=== PATIENT | female | born 1945 | race Caucasian/White ===

== ENCOUNTER 2024-10-30 20:13 | Observation (INO) | payer MEDICARE, SELFPAY ==
[2024-10-30 12:24] VITALS: BP 192/76
[2024-10-30] MEDS: NSS 1000 IV ×2 (15:28→21:36)
[2024-10-30] MEDS: ANTIVERT 25 MG PO (15:28)
--- NOTE | 2024-10-30 15:36 | ED.GENMED ---
History of Present Illness
General
Chief Complaint: Dizziness
Source: patient and family
Time Seen by Provider: 10/30/24 14:53
History of Present Illness
History of Present Illness:
Very pleasant 79-year-old female who says she awoke yesterday morning and immediately felt dizzy described as feeling like her eyes were funny and making a motion with her hand [id number]. She lay back down and waited for 5 minutes and felt
better. She then got up and walked to the bathroom and felt that her symptoms were improved but describes feeling 'woozy' for the rest of the day. When she awoke this morning she again felt like the room was spinning. She laid down for about 15
minutes, got up, and noted symptoms were still present although better. She was worried about falling when she walked down the stairs so she lowered herself down. She then reach out to her daughter and went to an urgent care where she was referred
to the ER. She does note that she has had 'pressure' in the right ear. She denies numbness, tingling, focal weakness, double vision, blurry vision, vomiting. She does have nausea with the dizziness. She denies neck pain, trauma, fever, chills,
rhinorrhea, sore throat, tinnitus. She does note discomfort on the right side of her head beginning today, lasting for last few hours. This is not worst of life or sudden onset.
Past History
Past History
ED Past Medical History: Other (Sleep apnea, PVCs)
ED Past Surgical History: Gynecological
Social History
Tobacco: Non-smoker
Alcohol: Occasional
Drug: None
Personal:
Living: alone
Employment: Retired
Family History
Family History: Other (Noncontributory)
Phy Exam
Physical Exam
Physical Exam:
GENERAL: Alert , in no apparent distress
EYE: pupils equal and reactive, no photophobia, EOMI, no nystagmus
NECK: Supple, no significant adenopathy.
ENT: o/p clr, mmm. Right TM obscured by cerumen, left TM unremarkable
CARDIAC: Regular rate and rhythm .
LUNGS: Clear breath sounds bilaterally, no acute respiratory distress, no wheezes/rales/rhonchi
ABDOMEN: Soft, without focal tenderness, no r/g, no cvat
NEUROLOGICAL: Alert and oriented, no focal neuro deficits, patient feels unsteady with walking, [id number] normal, motor 5 out of 5, sensory intact, cranial nerves II through XII intact
SKIN: Warm and dry, skin intact.
MUSCULOSKELETAL: No edema, well perfused.
PSYCH: Normal and appropriate interaction.
Course
Orders/Labs/Results
Orders:
Orders
10/30/24 Breakfast
Regular
At Your Request: Full Participation
Does patient need a safe tray?: No
10/30/24 12:28
EKG [Electrocardiogram (*1)] Urgent
Reason for Study: Vertigo / Dizzy
EKG- Treatment ONCE
10/30/24 15:15
CT Head W/o Iv Contrast Urgent
Comment:
Reason For Exam: dizzy
Cardiac Monitoring- Treatment ONCE
0.9% Sodium Chloride 1000 ml [Nss] 1,000 ml IV BOLUS
Meclizine [Antivert] 25 mg PO NOW STA
10/30/24 15:27
Complete Blood Count/No Diff Urgent
Comprehensive Metabolic Panel Urgent
Erythrocyte Sed Rate Urgent
Glycohemoglobin (HgbA1c) Urgent
Troponin I Urgent
10/30/24 19:49
Admit/Transfer Patient As Directed
Co-Sign Provider:
Level of Care: Observation services
Assign to:: Telemetry
Physician / Group: Roc
Diagnosis: Vertigo
Reason for Telemetry: Arrhythmia
Date to Stop Telemetry: 11/02/24
Time to Stop Telemetry: 11:00
PRN Pain Medication Management As Directed
May give lesser potent ordered pain med per pt: Yes
preference::
Protocol:: Medication orders for pain may be administered in a
manner that supports deferring to patient preference
when the pt is:
- Requesting an ordered lesser potent pain medication.
Least to most potent pain medications are defined
as: acetaminophen < NSAID < tramadol < opioids
(morphine, oxycodone, hydromorphone).
- Requesting a lesser dose of the same medication IF
ORDERED.
- Requesting a less intrusive route of administration
if both routes are prescribed by the provider (PO <
IV).
10/30/24 19:50
Code Status As Directed
Resuscitation Status: Full Code
10/30/24 21:06
0.9% Sodium Chloride 1000 ml [Nss] 1,000 ml IV 125 mls/hr
Acetaminophen [Tylenol] 650 mg PO Q4HPRN PRN
Carbamide Peroxide [Debrox Ear Drops] See Dose Instructions OTIC BID
Diazepam [Valium] 5 mg PO TIDPRN PRN
Meclizine [Antivert] 25 mg PO Q8HPRN PRN
Ondansetron Injectable [Zofran] 4 mg IV Q6HPRN PRN
10/30/24 21:06
Activity As Directed
Activity Level: Ambulate
With Assistance
I/O [Intake/ Output] As Directed
Frequency: Per unit guidelines
Neurological Checks As Directed
Frequency: q4h
Orthostatic Vital Signs As Directed
Orthostatic VS Frequency: BID
Pneumatic Compression Sleeves As Directed
Type: Knee high
Vital Signs As Directed
Frequency: Per unit guidelines
Weight As Directed
Frequency: Daily
Cpap [RESP] Routine
Patient to use own unit?: No
Set Pressure (cm H2O): 6
Instructions: HS and PRN. Titrate for comfort (patient does not know home settings).
Oxygen Therapy [O2 Therapy] [RESP] Routine
Titrate/Wean O2 to maintain O2 sat greater than (%): 94
Ot Eval And Treat Routine
PT Consult [Pt Eval And Treat] Routine
Activity Level: Ambulate
With Assistance
DX Deep Vein Thrombosis Video Routine
10/31/24 05:50
Basic Metabolic Panel IN AM
Cardiovascular Evaluation IN AM
Complete Blood Count/No Diff IN AM
10/31/24 18:00
Metoprolol Xl [Toprol Xl] 25 mg PO QPM
11/02/24 11:00
DC Protocol for Telemetry ONCE
Abnormal Lab Results
10/30/24
15:27
RBC 4.13 L 10^6/uL
(4.20-5.40)
MCV 101.0 H fL
(81.0-99.0)
MCH 32.9 H pg
(27.0-31.0)
MCHC 32.6 L g/dL
(33.0-37.0)
Hemoglobin A1c 5.7 H %
(4.0-5.6)
Total Bilirubin 1.5 H mg/dl
(0.2-1.3)
10/30/24 15:27
10/30/24 15:27
Vital Signs
Initial and Last Documented VS:
Initial Vital Signs
Temp Pulse Resp BP Pulse Ox
97.7 F 58 16 192/76 99
10/30/24 12:24 10/30/24 12:24 10/30/24 12:24 10/30/24 12:24 10/30/24 12:24
Last Documented Vital Signs
Temp Pulse Resp BP Pulse Ox
98.3 F 76 20 158/69 97
10/31/24 15:00 10/31/24 16:07 10/31/24 15:00 10/31/24 16:07 10/31/24 15:00
*Critical Care Note
Total Time (30-74mins, 75-104mins- exclusive of procedures): Not Applicable
Update Note
Update Note:
Patient presents to the Emergency Department with dizziness___
Number and Complexity of Problems Addressed at the Encounter
� Chronic conditions affecting care:
� Acute Exacerbation and/or Progression of Chronic Illness:
� Differential Diagnosis includes: But not limited to central cause such as stroke, TIA, tumor, peripheral cause such as BP PV, otolith, viral illness, etc.
Amount and/or Complexity of Data to be Reviewed and Analyzed
� I performed an independent evaluation of and my interpretation is:
EKG:
CT:No CT evidence for acute intracranial hemorrhage or transcortical infarct.
2. Mild white matter leukoaraiosis in the frontal and parietal lobes.
3. Mild diffuse cerebral and cerebellar volume loss.
4. Moderate left sphenoid sinusitis.
Xrays:
Laboratory Studies:generally unremkarable, nonspec bilirubin elevation
Other:
� Review of other/old records reveals:
� Clinical information was obtained by an independent historian: Daughter who is bedside
� Prescriptions/Medications Considered but not given:
� Further testing considered but not performed: Hints exam not performed as she is not a candidate as she does not have resting vertigo or resting nystagmus. Vertigo is only noted when she turns her head either way or sits up.
Risk of Complications and/or Morbidity or Mortality of Patient Management
� Social determinants of health affecting care:
� Discussion with other providers (PCP, Hospitalists, Consultants, etc):
� Escalation of care including admission/observation vs risk of discharge considered: 7:12 PM patient feels somewhat better although still experiences vertigo with certain positions including when walking here and an unsteady way
with RN. Recommendation for observation/admission overnight.
ED Attending Note
-
Portions of this chart may have been created with voice recognition software.� Occasional wrong word or��sound alike� substitutions may have occurred due to the inherent limitations of voice recognition software.
Discharge Plan
Departure
Patient Disposition: Admit
Date of Disposition: 10/30/24
Time of Disposition: 19:12
Admit to: Telemetry
Presentation/result/management discussed w/ accepting MD/DO: Hospitalist
Condition: Fair
Discharge Problem:
Vertigo
Interventions
Interventions:
*Risk Screen - Suicide Last Done: 10/30/24 12:24
*General Assessment Last Done: 10/30/24 15:27
*Neglect/Abuse Screening Last Done: 10/30/24 12:24
ED- Fall Risk Assessment Last Done: 10/30/24 21:05
*ED COVID-19 Vaccine History Last Done: 10/30/24 15:27
*Nursing Disposition Last Done: 10/30/24 21:05
ED- Neurological Assessment Last Done: 10/30/24 15:40
ED- Cardiac Assessment Last Done: 10/30/24 15:40
ED Swallowing Screen Last Done: 10/30/24 15:41
Discharge Date and Time
Discharge Date/Time: 10/30/24 21:05
[2024-10-30 15:49] LABS: Hematocrit 41.7 % (37.0-47.0); Hemoglobin 13.6 g/dL (12.0-16.0); Mean Corp Hgb Conc. 32.6 g/dL (33.0-37.0); Mean Corpuscular Hgb 32.9 pg (27.0-31.0); Mean Platelet Volume 9.2 fL (7.4-10.4); Platelet Count 263 10^3/uL (130-400); Red Blood Cell Count 4.13 10^6/uL (4.20-5.40); Red Cell Dist. Width 12.1 % (11.5-14.5); White Blood Cell Count 6.1 10^3/uL (4.8-10.8)
[2024-10-30 16:06] LABS: ALT (SGPT) 28 U/L (0-35); AST (SGOT) 27 U/L (14-36); Albumin 4.5 g/dl (3.5-5.0); Alkaline Phosphatase 64 U/L (38-126); Blood Urea Nitrogen 15 mg/dl (7-17); Calcium 9.7 mg/dl (8.4-10.2); Carbon Dioxide 26 mmol/L (22-30); Chloride 106 mmol/L (98-107); Glucose 80 mg/dl (70-99); Potassium 4.2 mmol/L (3.5-5.1); Sodium 140 mmol/L (135-145); Total Bilirubin 1.5 mg/dl (0.2-1.3); Total Protein 7.2 g/dl (6.3-8.2); eGFR > 60.00
[2024-10-30 16:13] LABS: Erythrocyte Sed Rate 10 mm/hour (0-20)
[2024-10-30 16:19] LABS: Troponin I < 0.012 ng/ml
[2024-10-30 18:52] VITALS: BP 156/55
--- NOTE | 2024-10-30 19:54 | HPS.HSE ---
Family Physician
-
Family Physician: Josie Steve
Chief Complaint
-
Dizziness
History of Present Illness
Patient is a 79y F with PMH significant for palpitations / PVCs who presents to ED complaining of dizziness / vertigo x > 24 hours. Patient states that her symptoms first started upon waking yesterday AM. She felt the room spinning and mild
nausea. No emesis. She felt unsteady on her feet throughout the day but did not fall, lose consciousness, etc. She developed a headache at the top of the head that has since migrated to the R side / R eye. She feels a fullness in the R ear.
This AM she again woke with symptoms - much worse this time - and presented to the ED for further evaluation.
Patient states that she has had vertigo episodes a few times in the past several years.
Medical History
Past Medical History
Past Medical History: Reports Other
Additional Past Medical History:
Palpitations / PVCs
Vertigo
INGRID
Past Surgical History: Reports Other
Additional Past Surgical History:
Tubal Ligation
Social History
Tobacco: Former Smoker (Quit smoking 15 years ago. Approx 30 pack years total use.)
Alcohol: Occasional
Drug: None
Family History
Family History: Not pertinent
Allergies / Home Medications
Allergies reflects when Allergies were last updated in [employer].
Home Medications with original date entered in [employer]
Allergy/Medication List:
Allergies
Allergy/AdvReac Type Severity Reaction Status Date / Time
acetaminophen Allergy n/v, low bp Verified 10/30/24 12:24
[From Leticiat-N 100]
codeine [Codeine] Allergy n/v, low Verified 10/30/24 12:24
blood
pressure
corn [[place]] Allergy n/v, low Verified 10/30/24 12:24
blood
pressure
Penicillins Allergy 'tremendous Verified 10/30/24 12:24
stomach
problems'
propoxyphene napsylate Allergy n/v, low bp Verified 10/30/24 12:24
[From Darvocet-N 100]
chocolate Allergy n/v, low bp Uncoded 10/30/24 12:24
Home Medications
metoprolol succinate 25 mg tablet,extended release 24 hr 25 mg PO QPM 05/14/23
Review of Systems
-
History Source: Patient
A 12 point ROS was completed and negative except as noted: Yes
Constitutional: Reports Fatigue; Denies Fever or Chills
EENT: Reports Other (R ear pressure / discomfort.); Denies Sore Throat
Respiratory: Denies Cough or Trouble Breathing
Cardiac: Denies Chest Pain or Palpitations
Abdomen/GI: Reports Nausea; Denies Abdominal Pain, Vomiting or Diarrhea
: Denies Dysuria or Frequency
Musculoskeletal: Denies Joint Pain or Edema
Neurological: Reports Dizzy and Headache; Denies Weakness or Numbness
Psych: Denies Depression or Anxiety
Physical Exam
Vital Signs
Vital Signs
Temp Pulse Resp BP Pulse Ox
97.7 F 64 16 156/55 99
10/30/24 12:24 10/30/24 19:15 10/30/24 19:15 10/30/24 18:52 10/30/24 12:24
Physical Exam
General: Other (79y F in no acute distress.)
HEENT: Moist mucous membranes and Other (No nystagmus appreciated. Bilateral cerum impactions. No noted erythema / edema / discharge.)
Respiratory: Clear; No Wheezes, Rales or Rhonchi
Cardiac: S1/S2 and Regular Rhythm; No Murmur
GI: Soft, Non Tender, Non Distended and Normal Bowel Sounds
Musculoskeletal: No Clubbing, No Cyanosis and No Edema
Neuro: AO x 3 and Nonfocal/grossly intact
Laboratory Results
-
10/30/24 15:27
10/30/24 15:
Laboratory Results
Total Bilirubin 1.5 mg/dl (0.2-1.3) H 10/30/24 15:27
AST 27 U/L (14-36) 10/30/24 15:
ALT 28 U/L (0-35) 10/30/24 15:
Alkaline Phosphatase 64 U/L (38-126) 10/30/24 15:
Troponin I < 0.012 ng/ml 10/30/24 15:
Impression/Plan
-
A/P: Patient is a 79y F with PMH significant for PVCs who presents to ED complaining of dizziness / vertigo since yesterday AM.
Vertigo
Bilateral Cerumen Impaction
- Observe overnight for further evaluation and treatment.
- With R ear discomfort and noted cerumen impaction - suspect this is related to presentation.
- Debrox gtt for now.
- Outpatient follow-up with ENT for cerumen removal.
- Supportive care including IVFs, antiemetics, meclizine PRN, etc.
- PT / Vestibular therapy evaluations.
- Follow for any new / worsening symptoms.
Palpitations
- Stable. Reported h/o PVCs. Single PAC seen on EKG.
- Continue current metoprolol.
- Monitor on tele overnight.
DVT Prophylaxis: SCDs
Code Status: Full
[2024-10-30 21:00] VITALS: BP 148/78
[2024-10-30] MEDS: DEBROX EAR DROPS 5 DROP OTIC (21:49)
[2024-10-30 23:09] VITALS: BP 133/69; BP 133/74; BP 152/73; PULSE 60; PULSE 71; PULSE 74
--- NOTE | 2024-10-31 00:18 | PTCARENOTE ---
Received pt from ED @ [id number]. LAINEY Turner. Pt ambulatory in room. Oriented to room, call murcia and plan of care.
[2024-10-31] MEDS: NSS 1000 IV ×2 (05:26→13:05)
[2024-10-31 06:33] LABS: Hematocrit 39.4 % (37.0-47.0); Hemoglobin 12.8 g/dL (12.0-16.0); Mean Corp Hgb Conc. 32.5 g/dL (33.0-37.0); Mean Corpuscular Hgb 32.7 pg (27.0-31.0); Mean Corpuscular Volume 100.5 fL (81.0-99.0); Mean Platelet Volume 9.5 fL (7.4-10.4); Platelet Count 258 10^3/uL (130-400); Red Blood Cell Count 3.92 10^6/uL (4.20-5.40); Red Cell Dist. Width 12.2 % (11.5-14.5); White Blood Cell Count 6.1 10^3/uL (4.8-10.8)
[2024-10-31 06:57] LABS: Blood Urea Nitrogen 10 mg/dl (7-17); Carbon Dioxide 26 mmol/L (22-30); Chloride 109 mmol/L (98-107); Glucose 86 mg/dl (70-99); HDL Cholesterol 41 mg/dl; LDL Cholesterol, Calculated 97 mg/dl; Potassium 4.1 mmol/L (3.5-5.1); Sodium 141 mmol/L (135-145); Total Cholesterol 165 mg/dl (50-199); Triglyceride 135 mg/dl (10-149); Very Low Density Lipoprotein 27 mg/dl (0-30); eGFR > 60.00
[2024-10-31 07:00] VITALS: BP 125/63; BP 139/65; BP 147/67; PULSE 70; PULSE 72; PULSE 75
[2024-10-31] MEDS: DEBROX EAR DROPS 5 DROP OTIC (07:43)
[2024-10-31 09:02] LABS: Glycohemoglobin (HgbA1c) 5.7 % (4.0-5.6)
[2024-10-31 10:00] VITALS: BP 155/74; PULSE 80
[2024-10-31] MEDS: ANTIVERT 25 MG PO (10:39)
[2024-10-31 11:00] VITALS: BP 114/69
--- NOTE | 2024-10-31 13:29 | W.PN.HOSP.TC ---
Addendum entered and electronically signed by Jose Woody MD 10/31/24 17:09:
Upon reevaluation patient was not feeling dizzy or having vertigo symptoms. Patient was complaining of right ear pain which probably due to recent air travel and cerumen impaction. Patient otherwise watching TV. Recommended outpatient evaluation
with ENT and vestibular therapy for which prescription was provided. Meclizine as needed. Recommend to follow-up with PCP for blood pressure.
More than 30 minutes spent in discharge including
Final examination of the patient
Summarizing hospital stay
Instructions for continuing care to all relevant caregivers
Preparation of discharge records, prescriptions, and referral forms
Total time spent (in minutes): 52
Original Note:
Today's Communication/Plan
-
meclizine prn
PT/OT-Vestibular
monitor symptoms
DC IVF.
Assessment / Plan
Assessment / Plan
A/P: Patient is a 79y F with PMH significant for PVCs who presents to ED complaining of dizziness / vertigo since yesterday AM.
Vertigo
Bilateral Cerumen Impaction
R ear pain could be from barotrauma from recent air-travel
- With R ear discomfort and noted cerumen impaction - suspect this is related to presentation.
- Debrox gtt for now.
- Outpatient follow-up with ENT for cerumen removal.
- Supportive care including IVFs, antiemetics, meclizine PRN, etc. Stop IVF
- GCS 15. No focal neurological deficit.
- PT / Vestibular therapy evaluations. Positive Shel[place]-hallpike manuever. Recommend OP PT
- Self-care techniques like yawning, swallowing, or chewing gum helps with ear pressure
Palpitations
- Stable. Reported h/o PVCs. Single PAC seen on EKG.
- Continue current metoprolol.
DVT Prophylaxis: SCDs
Code Status: Full
PT'/OT-outpatient therapy.
Anticipated Discharge: Today
Subjective/Interval History
-
Date of Service: October 31, 2024
feeling better this morning
States of right ear fullness and mild headache
No nausea no vomiting no focal weakness no numbing tingling or problems with ambulation.
Objective Data
-
Labs:
Laboratory Results
10/31/24
05:50
WBC 6.1
Hgb 12.8
Hct 39.4
Plt Count 258
Sodium 141
Potassium 4.1
Chloride 109 H
Carbon Dioxide 26
BUN 10
Creatinine 0.6
Glucose 86
Calcium 9.0
Vital Signs:
Vital Signs
Temp Pulse Resp BP Pulse Ox
98.1 F 78 20 114/69 96
10/31/24 11:00 10/31/24 11:00 10/31/24 11:00 10/31/24 11:00 10/31/24 11:00
I&O
10/30/24 10/31/24 11/01/24
06:59 06:59 06:59
Intake Total 1000 / 1000
Balance 1000 / 1000
Physical Exam
-
General: Well Developed and No Apparent Distress
HEENT: Normocephalic, Atraumatic and Moist Mucous Membranes
Respiratory: Clear to Auscultation
Cardiac: Regular Rhythm and S1/S2; Negative Murmur, Rub or Gallop
GI: Soft, Nontender, Nondistended and Normal Bowel Sounds; Negative Organomegaly
Rectal: Deferred by Provider
Musculoskeletal: No Clubbing, No Cyanosis and No Edema
Skin: Negative Rash
Neuro: Awake, Alert, Oriented, AO x 3, No Motor Deficits, Nonfocal/Grossly Intact and No Sensory Deficits; Negative Slurred Speech or Facial Droop
Psych: Calm
[2024-10-31 15:00] VITALS: BP 158/69
--- NOTE | 2024-10-31 15:32 | W.DCSUMMARY ---
Discharge Summary
Discharge Data
Date of Admission: 10/30/24
Date of Discharge: 10/31/24
-
Pending Results: No
Hospital Course
79-year-old female past medical history of primary hypertension who is presenting from home complaining of dizziness and vertigo for greater than 24 hours. Stated of room spinning sensation. Patient with also recent travel via airplane multiple
times. CT head done on admission was negative for acute bleeding or infarct. Patient was started on IV fluid resuscitation. Patient was started on eardrops with cerumen impaction. Patient was also started on meclizine. Patient underwent
evaluation by physical and Occupational Therapy with positive [place]-Hallpike maneuver. Patient with vertigo. Patient was able to ambulate. Recommended outpatient ENT and vestibular therapy evaluation. Also recommend to follow-up with PCP for blood
pressure management.
Discharge Plan
-
Patient Disposition: Home with Home Care
Discharge Diagnosis/Procedures: Benign Paroxysmal Positional Vertigo
Cerumen impaction
Condition: Fair
Diet: Regular
Activity: With assistance and As tolerated
Driving Restrictions: As prior to admission
Other Services: PT
Activity Restrictions/Additional Instructions:
Avoid air travel till seen by ENT
Referrals:
Josie Steve DO [Family Provider] - in less than 1 week
Judd Shaver MD [Active] - in one to two weeks
Prescriptions:
New
meclizine 25 mg Tablet
25 mg PO Q8HPRN PRN (Reason: Dizziness) 10 Days Qty: 30 0RF
Ear Wax Removal Drops 6.5 % Drops
5 drp EACH EAR BID 3 Days Qty: 15 0RF
Continued
metoprolol succinate 25 mg Tablet Extended Release 24 Hr
25 mg PO QPM
Discharge Orders:
Discharge Patient (As Directed); Ordered 10/31/24
Ordered By: Jose Woody
Discharge Date and Time
Print Language: LATVIAN
[2024-10-31] MEDS: TOPROL XL 25 MG PO (16:07)
--- NOTE | 2024-10-31 16:08 | CM ---
Pt to d/c today. Seen pt bedside, initial assessment completed. Admitted for dizziness.
Pt reports that pt lives w/ spouse in a [facility]-no steps to enter. Pt reports family lives close by. Pt is independent w/ ambulating and ADLs, no DME required or identified. No SNF/VN/PT hx. Pt denies any current home or OP services at this time.
Address, points of contact and insurance verified
PCP: Dr. Steve
Pharmacy: [facility] [address]
Therapy evaluated pt and is recommending OP therapy. CM discussed this w/ pt, pt agreeable and plans to make appt. LING TT hospitalist for script, will tube to [facility] nurse station
Per pt, her ride can transport her within the next hour or so
Pt admitted as OBS, GOMEZ form reviewed, copy on chart. IMM reviewed, copy on chart
Plan: Home w/ OP therapy.
== END 2024-10-31 18:02 | disposition home or self-care (01) ==
LOC: 4 WEST ACU 20:13
PROVIDERS: ADMITTING PHYSICIAN Hospitalist; ATTENDING PHYSICIAN Hospitalist; EMERGENCY PHYSICIAN Emergency Medicine; FAMILY PHYSICIAN Family Medicine
DX: H81.10 Benign paroxysmal vertigo, unspecified ear (principal); H61.23 Impacted cerumen, bilateral; J32.3 Chronic sphenoidal sinusitis; Z87.891 Personal history of nicotine dependence; R00.2 Palpitations; I10 Essential (primary) hypertension; Z88.0 Allergy status to penicillin
CPT/HCPCS: 70450; 80048; 80053; 80061; 83036; 84484; 85027; 85652; 93005; 94660; 96360; 97112; 97162; 97166; 99285; G0378

== ENCOUNTER → 2025-03-21 11:00 | Outpatient (REF) | payer MEDICARE, SELFPAY | LOC: RCS 11:00 | PROVIDERS: ATTENDING PHYSICIAN Internal Medicine Cardiovascular Disease; FAMILY PHYSICIAN Family Medicine | DX: R07.89 Other chest pain (principal); R06.09 Other forms of dyspnea | CPT/HCPCS: 78452; 93017; A9500; J2785 ==

== ENCOUNTER → 2025-03-24 11:08 | Outpatient (REF) | payer MEDICARE, SELFPAY | LOC: HWRCS 11:08 | PROVIDERS: ATTENDING PHYSICIAN Internal Medicine Cardiovascular Disease; FAMILY PHYSICIAN Family Medicine | DX: R07.89 Other chest pain (principal) | CPT/HCPCS: 93306 ==